=== PATIENT | male | born 1965 | race Native Hawaiian/Other Pacific Islander ===

== ENCOUNTER 2016-08-10 23:18 | Inpatient (IN) | payer BC, OTHER ==
[~2016-08-10] VITALS: Ht 167.6 cm; Wt 88.5 kg
--- NOTE | ~2016-08-10 | H ---
[facility] [place] [address] HISTORY AND PHYSICAL Name: GALILEO WOMACK Room #: 309-P ADM IN M.R.#: [id number] Admission: 08/11/16 Attend Phys: Alvarez Inman MD Discharge: Date of : 63 Report #: [id number] THIS REPORT FOR: //name// CC: Jessica Thompson MD [facility] Alvarez Inman MD DATE OF SERVICE: 08/11/2016 CHIEF COMPLAINT: Chest pain. HISTORY OF PRESENT ILLNESS: The patient is a 51-year-old [place] Islander male who was at home working out. Today when he developed a sudden substernal crushing discomfort that radiated to his left shoulder and down his left arm and into the jaw. It was associated with shortness of breath that worsened when he ambulated across the room. He was already sweating and was not able to attest to whether he had gotten any worse with this syndrome, but it made him feel very, very ill. He called out to his who got him to the [facility] Emergency Room within 30 minutes of the onset of his symptoms. He was given two sublingual nitroglycerins and the workup for potential coronary artery disease was initiated. His EKG in the Emergency Room showed normal sinus rhythm with what is apparently a new left anterior fascicular block and some repolarization changes. Initial cardiac enzymes were negative. Baseline creatinine on arrival today is 1.5. Chest x-ray is otherwise benign. PAST MEDICAL HISTORY: Includes recurrent gout. He was recently treated with Uloric for this, but did not have a good result and discontinued in favor of returning to colchicine daily with intermittent use of anti-inflammatories such as prednisone to control the flare ups. He does have known hyperuricemia. 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 He did have some elevated liver function tests at that time. He is overweight. PAST SURGICAL HISTORY: He has had tonsillectomy about 11 or 12 years ago. He has had a cholecystectomy about 4 years ago. ALLERGIES: PENICILLINS, SHELLFISH, LACTOSE AND SHRIMP. FAMILY HISTORY: Coronary artery disease and hypertension. SOCIAL HISTORY: The patient is to Yolanda Womack. He has two grown daughters. He is in the process of helping one of them moved back to [place] from [place]. He is a lifelong nonsmoker and does not abuse alcohol or recreational drugs and never has. REVIEW OF SYSTEMS: No headaches, no confusion, no trauma or falls. No change [facility] [address] [place] [address] HISTORY AND PHYSICAL Name: GALILEO WOMACK Room #: 309-P [facility] IN M.R.#: [id number] Admission: 08/11/16 Attend Phys: Alvarez Inman MD Discharge: Date of : 63 Report #: [id number] in vision or hearing or sense of taste or smell. No difficulties with swallowing. No chest pain prior to the sudden onset today. Shortness of breath walking across the room. Otherwise, none prior. He has noticed no decrease in his exercise tolerance recently. No swelling noted in his extremities. No abdominal pain. No change in his bowel or bladder habits recently. Until today, therefore he had no difficulties pursuing his physical workouts. PHYSICAL EXAMINATION: In the Emergency Room. VITAL SIGNS: Temperature of 97.9, pulse of 77, respirations of 24 per minute, blood pressure 157/100 and a room air oxygen saturation is 99%. His blood pressure later fell to 137/85 after receiving aspirin and sublingual nitroglycerin. The difference in blood pressures between his arms was negligible. GENERAL: The patient is a very pleasant, somewhat tired looking middle-aged [place] Islander male in no distress. At the time I examined him, his chest pain was nearly resolved. HEENT: The extraocular muscles are intact. Oropharynx is moist and pink. Hearing is grossly normal. NECK: Supple, without adenopathy or overt thyromegaly or jugular venous distention. LUNGS: Clear bilaterally. CARDIOVASCULAR: Reveals a regular rhythm with no ectopy. S1 and S2 are noted. ABDOMEN: Soft and benign on exam today. There is no epigastric tenderness and there is no organomegaly. EXTREMITIES: Without cyanosis or clubbing or edema. Peripheral pulses easily palpated in all 4 distal extremities. MENTAL STATUS AND NEUROLOGIC: Entirely within normal limits. LABORATORY DATA: CBC showed a white cell count that was elevated at 15,900 (he is taking prednisone for gout flare up), hemoglobin 15.2 with normal red blood cell indices, platelet count 283,000. Differential showed 59.4% segmented neutrophils, 30.9% lymphocytes, 8.7% monocytes, eosinophils 0.4%, basophils 0.6% and the absolute neutrophil count is 9400 per microliter. The protime was 9.9 with an INR of 1.0. The APTT was 27.0, and also normal. The comprehensive metabolic panel showed a sodium of , potassium slightly low at 3.2 (he admits to some slight diarrhea when he takes colchicine), chloride of 103, bicarbonate 27, BUN of 18, creatinine 1.5. The anion gap is 13, glucose is nonfasting. AST of 16, ALT of 106 (note prior history of elevated liver functions), alkaline phosphatase 105, total bilirubin 0.4. The calcium is 9.2. The albumin is 3.9, magnesium is 2.0 and normal. The estimated glomerular filtration rate is 49. Total CPK on arrival was 147. Troponin is less than 0.04 and the NT-proBNP is 58 and also is normal. The CK-MB mass in the ER was normal at 1.2. Chest x-ray done in the Emergency Room showed decreased inspiration, atelectasis in the bases. Nothing for acute heart failure, pneumonitis. The EKG on admission showed a normal sinus rhythm, rate of 83 beats per minute. There was left axis deviation and ST elevation, probable [facility] [address] [place] [address] HISTORY AND PHYSICAL Name: GALILEO WOMACK Room #: 309-P [facility] IN ..#: [id number] Admission: 08/11/16 Attend Phys: Alvarez Inman MD Discharge: Date of : 63 Report #: [id number] early to be normal early repolarization pattern and I interpreted as having a left anterior fascicular block, not confirmed on the official report, however. ASSESSMENT AND PLAN: 1. Chest pain, uncertain etiology. The left anterior fascicular block if present, is not a benign finding. The patient needs to be admitted for close observation. The decision pending his clinical progress will either before some sort of stress test tomorrow or heart catheterization. We will obtain consultation and I have spoken to Dr. Juan R Thompson regarding the patient's cardiac care and he agrees with this plan. I will defer to his judgment. The patient does have hyperuricemia by history. We will recheck this as well as lipids and other risk factors during his hospital stay. It is noteworthy he also has a neck circumference of 17.5 to 18 inches. So his risk factors for coronary artery disease are family history, elevated blood pressure today, hyperuricemia, overweight and possibly chronic kidney disease. His estimated GFR was 49. Treatment and workup will include aggressive lipid lowering (liver functions permitting), aggressive blood pressure control, evaluation for obstructive sleep apnea (he does snore when he sleeps on his back) and a heart healthy diet and cardiac rehabilitation program. 2. Hyperuricemia and recurrent gout. I will be discussing further, to continue treatment of this problem with the patient. The presence of hyperuricemia chronically is an independent risk factor for the development of coronary artery disease. However, I am not sure of the importance of lowering it with regards to decrease in coronary risk factors. It would certainly be helpful in reducing the recurrences of acute gout flare ups. 3. Increased neck circumference and snoring as described above. 4. Apparent chronic kidney disease. The patient is quite muscular and this may partly reflect his physique. We will continue to monitor. 5. Hypokalemia, see above. Replacement potassium has already been ordered by the emergency physician and will follow up to make sure that it normalizes prior to discharge. 6. Bello Inman M.D. <ELECTRONICALLY SIGNED> By: Alvarez Inman MD 08/11/16 1112 0942 1109 Alvarez Inman MD /nt
--- NOTE | ~2016-08-10 | CATHLAB ---
[facility] [place] [address] INVASIVE PROCEDURE REPORT Name: GALILEO WOMACK Room #: 207-P [facility] IN .R.#: [id number] Admission: 08/11/16 Attend Phys: Alvarez Inman MD Discharge: 08/13/16 Date of : 63 Date of Service: 08/11/16 1546 Report #: [id number] THIS REPORT FOR: //name// CC: Alvarez Inman PROCEDURE: This is PTCA stent of mid LAD. DESCRIPTION OF PROCEDURE: The patient was brought to the catheterization lab emergently for having some recurrent pain. He had an intervention previously with a proximal mid LAD stent placed. There was a moderately hazy 50%-60% narrowing in the more distal LAD down and we elected to treat that medically. However, he has had recurrent pain and some subtle anterolateral ST changes, although not elevation. Brought back to the catheterization lab in EBU guide. A 6-New Zealander sheath placed in the femoral artery without complication. Heparin and Integrilin boluses, Integrilin drip had already been initiated. It was still persistently hazy appearing and appeared tighter in some views, suspect this has to be the culprit. I dilated with a 2.5 x 12 balloon. I then placed a 2.5 x 12 Resolute drug-eluting stent. This actually overlapped into the more proximal 2.75 stent, deployed to 14 atmospheres and then postdilated to 19 atmospheres within the stent in the overlapping segment. The final result was excellent with 2 sequential stents in the mid LAD, yielding 0% residual and LUIS grade 3 flow. Small diagonal branch there which is less than 1.0 branch which may close. He is having no pain. The larger first diagonal branch has an eccentric 70% lesion at the ostium, which we will follow and not intervene on. He is pain free at this time. Vascular sheath was removed with a Mynx closure without complication, for an ACT at 198. Integrilin drip will be maintained. He will transfer to the CCU pain free and without EKG changes. HEMODYNAMICS: Aortic 120/82. IMPRESSION: 1. Successful percutaneous transluminal coronary angioplasty stent of the more distal mid left anterior descending lesion with progressive haziness and some flow limitation, with placement of a 2.5 x 12 Resolute drug-eluting stent. This slightly overlapped into the slightly more proximal 2.75 x 12 Resolute, which was placed earlier today for a non-ST elevation myocardial infarction. The remainder of the vessels was well preserved and wraps the apex. 2. Moderate first ostial lesion of 70%, will treat medically. See the prior report for the reminder of the left system dictation. He is stable and pain free. Vascular sheath has been removed with Mynx, without hematoma. We will transfer to the CCU. Nitro drip and Integrilin drips to be maintained overnight. <ELECTRONICALLY SIGNED> By: Juan R Thompson MD, FACC 08/19/16 1233 1546 [id number] Juan R Thompson MD, FACC /nt
--- NOTE | ~2016-08-10 | D ---
[facility] [place] [address] DISCHARGE SUMMARY Name: GALILEO WOMACK Room #: 207-P [facility] IN M.R.#: [id number] Admission: 08/11/16 Attend Phys: Alvarez Inman MD Discharge: 08/13/16 Date of : 63 Report #: [id number] THIS REPORT FOR: //name// CC: Jessica Thompson MD [facility] Alvarez Womack MD DATE OF SERVICE: 08/13/2016 DATE OF ADMISSION: 08/11/2016. DATE OF DISCHARGE: 08/13/2016. 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 He ruled in for non-ST segment elevation myocardial infarction. He was seen in consultation by Dr. Juan R Thompson who took him for heart catheterization the following morning and placed a stent in a 90% occlusion in his left anterior descending coronary artery. He has other areas of involvement of coronary artery disease as described in the cardiac catheterization report. His left ventricular ejection fraction is normal or very near normal. After his heart catheterization that same afternoon, he developed recurrent chest discomfort and was found to have EKG changes and returned to the cardiac catheterization lab where a second stent was placed sequentially in the left anterior descending artery in an area of a less critical distal lesion. The chest pain resolved with this intervention, and the patient had no further episodes of chest discomfort during this hospitalization. He did develop a small bruise/hematoma in the right groin at the site of catheterization, but otherwise had no complications. Other findings during this hospitalization include a creatinine that was 1.5 on admission and fell to 1.3 by the day of discharge. Chest x-ray that was essentially normal. EKG that showed a left anterior fascicular block, but was otherwise normal with the exception of some transient ischemic changes in the anterior leads. His uric acid levels were exceedingly high at 10.0. Blood pressure control was achieved with difficulty using lisinopril and addition of a p.r.n. dose of amlodipine at one point. A beta estefania was discussed and not recommended because of the patient's baseline slow heart rate. In general, his heart rate was in the 50s and not higher than the 80s during this hospital stay. [facility] [address] [place] [address] DISCHARGE SUMMARY Name: GALILEO WOMACK Room #: 207-P [facility] IN M.R.#: [id number] Admission: 08/11/16 Attend Phys: Alvarez Inman MD Discharge: 08/13/16 Date of : 63 Report #: [id number] The patient also has a history of mild liver enzyme elevations times many years. Apparently, his brothers also have this abnormality. 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 However, at that time, hepatitis C, had not yet been identified and was only given the name of non-A and non-B hepatitis. I have ordered a hepatitis panel to help reassess this. Other hepatic disease etiologies are considered worked up and found not to be present, including alpha 1 antitrypsin deficiency and Ole's disease. Certainly, the patient has no evidence of chronic liver disease otherwise, and his prothrombin time is normal during this hospitalization. Hemoglobin A1c was obtained and was 5.3 and normal. Lipid profile showed a total cholesterol of approximately 170 with an LDL that was between 100 and 110. The rest of the labs can be found in the body of the chart. The patient has a 17-1/2 inch neck size. His admits that his breathing is altered when he sleeps on his back, so he studiously makes the effort to sleep on his side. He does have a strong family history of coronary artery disease in his father and uncle. In discussing the case with Dr. Thompson, he expressed an interest in converting the lisinopril, which the patient is currently receiving at the hospital, to Edarbi. I will defer to his judgment on this matter at discharge. I discussed the possibility of the patient having a stress test in several months after his recovery to assess the stability of his other lesions and efficacy of the stent placements. The patient will be following up with Dr. Thompson routinely for this. I have, at the patient's request and with his permission, sent copies of these records not including this discharge summary, to Dr. Ernesto Brooks, chair of the Lipids Department at the [facility], and requested a formal outpatient consult in the future. The patient will be sent home on high dose statin therapy. I have not studied his carotid arteries at this time. The patient is also being sent home on fish oil and aspirin for preventive therapy. The hyperuricemia problem from which the patient suffers and has recurrent gout problems, also needs to be addressed. Prior to this hospitalization and because of underlying abnormal liver function tests, I treated the patient with Uloric for a time. The patient felt that his gout was considerably worsened while he was taking that medication, much to his surprise and mine. At this time, he will continue on colchicine and prednisone for acute flare-ups pending that workup. As hyperuricemia is a known risk factor with coronary artery disease, it is significantly worth addressing, but it is my understanding at this time that it is not clear whether the presence of hyperuricemia is an effect of [facility] [address] [place] [address] DISCHARGE SUMMARY Name: GALILEO WOMACK Room #: 207-P [facility] IN M.R.#: [id number] Admission: 08/11/16 Attend Phys: Alvarez Inman MD Discharge: 08/13/16 Date of : 63 Report #: [id number] vascular disease or causative factor in this development. I have suggested he might wish to see a kier drier for this and will be in contact with me as far as arranging that after he is released from Cardiology and lipid clinics. Because of the known sleep issues, I strongly recommended to the patient that he have a polysomnogram, and we will be arranging this as an outpatient as well. The other lab pending at time of discharge was testosterone and free testosterone levels. DISCHARGE MEDICATIONS: At time of discharge, the patient is on the following medication regimen: 1. Effient or prasugrel 10 mg by mouth daily for at least 1 year. 2. Atorvastatin 80 mg by mouth daily. 3. Fish oil 1000 mg by mouth twice daily. 4. Nitroglycerin sublingual 0.4 mg as needed for chest pain up to 3 times per episode with instructions to go to the ER should that fail. 5. Lisinopril 40 mg by mouth daily. * 6. Aspirin 325 mg by mouth daily. 7. Tylenol on a p.r.n. basis. 8. Colchicine 0.6 mg daily. 9. Prednisone 20 mg daily as directed for flare-ups of gout. (Dr. Thompson is planning to convert lisinopril to Edarbi when he sees him at followup). Please note that after the discharge orders were entered in the computer and signed, the patient developed some discomfort at the tip of his penis and was treated for balanitis with some topical nystatin cream). DISCHARGE DIAGNOSES: 1. Non-ST segment elevation myocardial infarction. 2. Coronary artery disease. 3. Hyperlipidemia. 4. Hypertension. 5. Hyperuricemia. 6. Hypokalemia. 7. Abnormal liver function tests. 8. Candidal balanitis. 9. Overweight. <ELECTRONICALLY SIGNED> By: Alvarez Inman MD 08/14/16 0019 0918 1438 Alvarez Inman MD /nt
--- NOTE | ~2016-08-10 | EKG ---
[address] [address] ELECTROCARDIOGRAM REPORT Name: GALILEO WOMACK Room #: 309-P ADM IN M.R.#: [id number] Admission: 08/11/16 Attend Phys: Alvarez Inman MD Discharge: Date of : 63 Report #: [id number] THIS REPORT FOR: //name// [facility] [place] [place] Test Date: 2016-08-11 Test Time: 09:31:12 Pat Name: GALILEO WOMACK Department: Room: 309 P Gender: M Correctional Medicine Physician: ISIDORO : 1965 Requested By: Juan R Thompson Order Number: [id number] MD: Italo Snell Measurements Intervals Foster Rate: 61 P: 29 PA: 135 QRS: -34 QRSD: 107 T: -9 QT: 442 QTc: 446 Interpretive Statements Sinus rhythm Left axis deviation Abnormal R-wave progression, early transition Borderline T abnormalities, inferior leads Electronically Signed On 08-11-2016 12:48:48 NANNY/HOUSEHOLD MANAGER by Italo Snell [email or web address] <ELECTRONICALLY SIGNED> By: Italo Snell MD 08/11/16 1248 0 0 Italo Snell MD /SUNSHINE
--- NOTE | ~2016-08-10 | HC ---
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 He does not have a cardiac history. He had an episode last night while working out of some significant substernal chest pain or pressure, made him mildly diaphoretic and short of breath. Subsequently, brought to the emergency room here at [facility] by his son. No acute current injury and became pain free. Initial troponin was negative. One episode of chest pain after he went to the bathroom during the night. He was admitted and placed on aspirin. The troponin this morning was 1.5. He has been pain free since the event during the night. He takes only colchicine and currently on a prednisone taper for a flare of gout. He denies PND or orthopnea. There has not really been significant change in his exercise tolerance, he states. This was the first event of this. No PND or orthopnea. No peripheral edema. No syncope or presyncope. EKG is sinus rhythm with some nonspecific changes. Laboratory work positive for troponin and hypokalemia. His H and H was 15 and 45 and platelets are 283,000. Potassium 3.2, being placed and creatinine 1.5. Lipids are pending. 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 He has had ear tubes placed and nonspecific liver function test. FAMILY HISTORY: Positive that father and uncle had premature coronary disease and also TIAs. ALLERGIES: PENICILLIN and SHELLFISH. He is also LACTOSE INTOLERANT. SOCIAL HISTORY: He is a physician, , 2 children. Minimal alcohol use. No tobacco or drug use. REVIEW OF SYSTEMS: Essentially negative, except for as stated above. PHYSICAL EXAMINATION: VITAL SIGNS: Blood pressure has been running in 160/90 range. Pulse is 50. HEENT: Eyes reveal no xanthelasmas. Pharynx is clear. NECK: Shows preserved upstrokes, without JVD or bruits. LUNGS: Clear. CARDIAC EXAMINATION: Regular rate and rhythm, S1, S2, without murmur or gallop. ABDOMEN: Soft. No HSM or abdominal bruit. EXTREMITIES: Reveal no edema. Distal pulses are intact. NEUROLOGIC: Nonfocal. [facility] [address] [place] [address] CONSULTATION Name: GALILEO WOMACK Room #: [address] [place] [address] IN M.R.#: [id number] Admission: 08/11/16 Attend Phys: Alvarez Inman MD Discharge: 08/13/16 Date of : 63 Report #: [id number] SKIN: Warm and dry, without xanthoma or ulcer. MUSCULOSKELETAL: No gross joint deformity. ASSESSMENT: 1. Non-ST elevation myocardial infarction. 2. Coronary artery disease. 3. Hypertension. 4. Elevated liver function tests. 5. Hypokalemia. RECOMMENDATIONS AND PLAN: He has been given 80 of Lipitor and aspirin. We will proceed to the catheterization lab to delineate the anatomy. Risks, benefits and alternatives were discussed with the patient, who does elect to proceed. Family is not currently present, but will discuss with them. <ELECTRONICALLY SIGNED> By: Juan R Thompson MD, FACC 08/19/16 1233 0837 1103 Juan R Thompson MD, FACC /nt
--- NOTE | ~2016-08-10 | EKG ---
[address] [address] ELECTROCARDIOGRAM REPORT Name: GALILEO WOMACK Room #: 207-P ADM IN M.R.#: [id number] Admission: 08/11/16 Attend Phys: Alvarez Inman MD Discharge: Date of : 63 Report #: [id number] THIS REPORT FOR: //name// [facility] Test Date: 2016-08-12 Test Time: 06:39:38 Pat Name: GALILEO WOMACK Department: Room: 207 P Gender: M Industrial Safety And Health Technician: beka : 1965 Requested By: Juan R Thompson Order Number: [id number] MD: Deon Marsh Measurements Intervals [place] Rate: 60 P: 24 [place]: 130 QRS: -38 QRSD: 116 T: 42 QT: 540 QTc: 540 Interpretive Statements Sinus rhythm Leftward axis Abnrm T, consider ischemia, anterolateral lds Baseline wander in lead(s) V5 Compared to ECG 08/11/2016 13:55:55 no significant change was found Electronically Signed On 08-12-2016 7:45:41 ELECTRIC MOTORMAN by Deon Marsh [email or web address] <ELECTRONICALLY SIGNED> By: Deon Marsh MD, [facility] 08/12/16 0745 0639 0639 Deon Marsh MD, [facility] /EPI
--- NOTE | ~2016-08-10 | EKG ---
[address] [address] ELECTROCARDIOGRAM REPORT Name: GALILEO WOMACK Room #: 309-P ADM IN M.R.#: [id number] Admission: 08/11/16 Attend Phys: Alvarez Inman MD Discharge: Date of : 63 Report #: [id number] THIS REPORT FOR: //name// [facility] Test Date: 2016-08-10 Test Time: 23:19:15 Pat Name: GALILEO WOMACK Department: Room: [facility] Gender: M Armature Straightener: SAKSHI : 1965 Requested By: Mir Lizarraga Order Number: [id number] MD: Italo Snell Measurements Intervals [place] Rate: 83 P: 55 [place]: 137 QRS: -41 QRSD: 106 T: 28 QT: 402 QTc: 473 Interpretive Statements Sinus rhythm Left axis deviation ST elev, probable normal early repol pattern No previous ECG available for comparison Electronically Signed On 08-11-2016 8:07:17 ELECTRO MECHANICAL TECHNICIAN by Italo Snell [email or web address] <ELECTRONICALLY SIGNED> By: Italo Snell MD 08/11/16 0807 18 18 Italo Snell MD /[facility]
--- NOTE | ~2016-08-10 | CATHLAB ---
[facility] [address] [place] [address] INVASIVE PROCEDURE REPORT Name: GALILEO WOMACK Room #: 207-P [facility] IN M.R.#: [id number] Admission: 08/11/16 Attend Phys: Alavrez Inman MD Discharge: 08/13/16 Date of : 63 Date of Service: 08/11/16 0841 Report #: [id number] THIS REPORT FOR: //name// CC: Alvarez Inman MD PROCEDURES: Left ventriculography, coronary angiography, stent of LAD, abdominal aortography. DESCRIPTION OF PROCEDURE: The patient brought to the catheterization lab having recurrent 2 episodes of chest pain with a troponin of 1.5, pain free, had been admitted overnight. The right groin prepped and draped in sterile manner. Xylocaine was used for local anesthesia. Versed was given for conscious sedation, a 6 Irish sheath, right femoral artery over the wire. Initially, a straight pigtail catheter performed a single CROSS arteriogram and AP aortogram. LV function was preserved. Perhaps some very subtle anterior apical wall lag, ejection fraction was 55%. Abdominal aorta was intact. FL4 for left coronary system, FR4 for the right coronary system, multiple views and obliques were taken. Left main had mild irregularities and the LAD was mildly diseased and then the mid vessel had a 90% eccentric lesion followed by hazy area followed by 50% blockage in the bifurcation. This was a rapid around the LAD. The circumflex was nondominant with a 30-40% more distal lesion before an OM branch. The dominant right was a large, dominant vessel with 20% and 30% irregularities which did feel a large PDA along the inferior wall. I utilized a 4-0 EBU guide, an 0.014 loose wire, heparin, Integrilin boluses were given and p.o. Effient. I primarily stented this lesions the stent with a 2.75 x 12 Resolute drug-eluting stent, postdilated that up to 14, 15 atmospheres, which is approximately 3.0 mm in size, yielding 0% residual and LUIS grade 3 flow. The patient had resolution of his EKG changes. He had no pain during that procedure. Vascular sheath is secured for an ACT of 219. This will be removed in the CV holding area prior to monitor overnight in the CCU. Hemodynamically stable. HEMODYNAMICS: Aortic was 158/90, LV 156/18. IMPRESSION: 1. Successful primary of the mid LAD 90% eccentric cleft lesion with a 2.75 x 12 Resolute stent postdilated to 3.0 mm. There is a 50% more distal LAD lesion which we will continue to follow. 2. Mild left main disease. 3. Circumflex has 30-40% distal lesion proximal to the bifurcation, was nondominant. 4. Large dominant right coronary artery with mild irregularities. 5. Normal left ventricular size and systolic function, subtle anterior apical wall lag, I expect this to normalized EF 50-55%. 6. Abdominal aorta is intact without evidence of aneurysm. Single renal arteries were widely patent. [facility] [address] [place] [address] INVASIVE PROCEDURE REPORT Name: GALILEO WOMACK Room #: 207-P [facility] IN ..#: [id number] Admission: 08/11/16 Attend Phys: Alvarez Inman MD Discharge: 08/13/16 Date of : 63 Date of Service: 08/11/16 0841 Report #: [id number] RECOMMENDATIONS AND PLAN: We will continue aggressive risk factor modification, dual antiplatelet therapy. We will continue indefinitely for reevaluation , statin, YAS inhibitors. We will follow with Dr. Inman. Thank you for asking us to assist in the care of this patient.. <ELECTRONICALLY SIGNED> By: Juan R Thompson MD, FACC 08/19/16 1233 0841 1000 Juan R Thompson MD, FACC /nt
--- NOTE | ~2016-08-10 | EKG ---
[address] [place] [address] ELECTROCARDIOGRAM REPORT Name: GALILEO WOMACK Room #: 309-P ADM IN M.R.#: [id number] Admission: 08/11/16 Attend Phys: Alvarez Inman MD Discharge: Date of : 63 Report #: [id number] THIS REPORT FOR: //name// [facility] Test Date: 2016-08-11 Test Time: 13:55:55 Pat Name: GALILEO WOMACK Department: Room: 309 P Gender: M Museum Preparator: Hedy HENRIQUEZ : 1965 Requested By: Juan R Thompson Order Number: [id number] MD: Italo Snell Measurements Intervals [place] Rate: 78 P: 37 [place]: 132 QRS: -57 QRSD: 116 T: -14 QT: 482 QTc: 550 Interpretive Statements Sinus rhythm Left anterior fascicular block Abnrm T, consider ischemia, anterolateral lds Baseline wander in lead(s) V6 Compared to ECG 08/11/2016 09:31:12 Electronically Signed On 08-11-2016 15:54:22 PRODUCTION WELDER by Italo Snell [email or web address] <ELECTRONICALLY SIGNED> By: Italo Snell MD 08/11/16 1554 1355 1355 Italo Snell MD /EPI
--- NOTE | ~2016-08-10 | EKG ---
[address] [address] ELECTROCARDIOGRAM REPORT Name: GALILEO WOMACK Room #: 309-P ADM IN M.R.#: [id number] Admission: 08/11/16 Attend Phys: Alvarez Inman MD Discharge: Date of : 63 Report #: [id number] THIS REPORT FOR: //name// [facility] Test Date: 2016-08-11 Test Time: 02:26:15 Pat Name: GALILEO WOMACK Department: Room: 309 P Gender: M Assistant Chief Train Dispatcher: . : 1965 Requested By: Alvarez Inman Order Number: [id number] MD: Italo Snell Measurements Intervals [place] Rate: 56 P: 1 [place]: 129 QRS: -39 QRSD: 111 T: 8 QT: 446 QTc: 431 Interpretive Statements Sinus rhythm Left axis deviation RSR' in V1 or V2, probably normal variant No previous ECG available for comparison Electronically Signed On 08-11-2016 8:07:56 PROJECT MANAGEMENT IT SPECIALIST by Italo Snell [email or web address] <ELECTRONICALLY SIGNED> By: Italo Snell MD 08/11/16 0807 5 5 Italo Snell MD /[facility]
--- NOTE | ~2016-08-10 | EKG ---
[address] [place] [address] ELECTROCARDIOGRAM REPORT Name: GALILEO WOMACK Room #: 207-P ADM IN M.R.#: [id number] Admission: 08/11/16 Attend Phys: Alvarez Inman MD Discharge: Date of : 63 Report #: [id number] THIS REPORT FOR: //name// [facility] Test Date: 2016-08-11 Test Time: 18:00:58 Pat Name: GALILEO WOMACK Department: Room: 207 P Gender: M Bee Raiser: Jimbo PURVIS : 1965 Requested By: Juan R Thompson Order Number: [id number] MD: Deno Marsh Measurements Intervals [place] Rate: 63 P: 26 [place]: 131 QRS: -44 QRSD: 106 T: -25 QT: 435 QTc: 446 Interpretive Statements Sinus rhythm Left axis deviation RSR' in V1 or V2, probably normal variant Abnrm T, consider ischemia, anterolateral lds Compared to ECG 08/11/2016 13:55:55 No significant changes Electronically Signed On 08-12-2016 7:40:06 AVIATION SAFETY TECHNICIAN by Deon Marsh [email or web address] <ELECTRONICALLY SIGNED> By: Deon Marsh MD, FAC 08/12/16 0740 1800 1800 Deon Marsh MD, [facility] /EPI
--- NOTE | ~2016-08-10 | EKG ---
[place] [address] [facility] [place] [address] ELECTROCARDIOGRAM REPORT Name: GALILEO WOMACK Room #: 309-P ADM IN M.R.#: [id number] Admission: 08/11/16 Attend Phys: Alvarez Inman MD Discharge: Date of : 63 Report #: [id number] THIS REPORT FOR: //name// [facility] Test Date: 2016-08-11 Test Time: 07:06:14 Pat Name: GALILEO WOMACK Department: Room: 309 P Gender: M Alcohol Law Enforcement Agent: beka : 1965 Requested By: Alvarez Inman Order Number: [id number] MD: Deon Marsh Measurements Intervals [place] Rate: 70 P: 28 [place]: 136 QRS: -35 QRSD: 112 T: 27 QT: 414 QTc: 447 Interpretive Statements Sinus rhythm Borderline IVCD with LAD RSR' in V1 or V2, right VCD or RVH Baseline wander in lead(s) V5 No previous ECG available for comparison Electronically Signed On 08-11-2016 8:09:08 SEAM STAYER by Deon Marsh [email or web address] <ELECTRONICALLY SIGNED> By: Deon Marsh MD, [facility] 08/11/16 0809 0706 0706 Deon Marsh MD, [facility] /EPI
--- NOTE | ~2016-08-10 | EKG ---
[place] [address] [facility] [place] [address] ELECTROCARDIOGRAM REPORT Name: GALILEO WOMACK Room #: 207-P ADM IN M.R.#: [id number] Admission: 08/11/16 Attend Phys: Alvarez Inman MD Discharge: Date of : 63 Report #: [id number] THIS REPORT FOR: //name// [facility] Test Date: 2016-08-11 Test Time: 14:29:10 Pat Name: GALILEO WOMACK Department: Room: 207 P Gender: M Marriage Counselor Minister: Jimbo PURVIS : 1965 Requested By: Juan R Thompson Order Number: [id number] MD: Deon Marsh Measurements Intervals [place] Rate: 65 P: 29 [place]: 118 QRS: -46 QRSD: 103 T: -58 QT: 452 QTc: 470 Interpretive Statements Sinus rhythm LAD Abnrm T, consider ischemia, anterolateral lds Compared to ECG 08/11/2016 13:55:55 No significant changes Electronically Signed On 08-12-2016 7:37:15 LIFE ENRICHMENT SPECIALIST by Deon Marsh [email or web address] <ELECTRONICALLY SIGNED> By: Deon Marsh MD, [facility] 08/12/16 0737 1429 1429 Deon Marsh MD, [facility] /EPI
[~2016-08-10 23:18] MED LIST: COLCHICINE 0.60.6 M1 PO; FLEXERIL PO; HYDROCODON-ACE1 EAC7 PO; INDOMETHACIN 2525 MG PO; NAPROSYN500 MG PO; NORCO 5-325 TA1 EACH PO; VITAMINC500 PO
[2016-08-10 23:19] VITALS: BP 157/100
[2016-08-10 23:52] LABS: ABSOLUTE NEUTROPHILS 9.4 thou/uL (1.4-8.2); BASOPHILS 0.6 % (0.0-2.0); EOSINOPHILS 0.4 % (0.0-3.0); HEMATOCRIT 45.2 % (42.0-52.0); HEMOGLOBIN 15.2 gm/dL (14.0-18.0); LYMPHOCYTES 30.9 % (24.0-44.0); MCH 28.8 pg (26.0-34.0); MCHC 33.5 % (28.0-37.0); MONOCYTES 8.7 % (1.0-8.0); PLATELET COUNT 283 thou/uL (150-400); POLYS 59.4 % (36.0-66.0); RBC 5.25 mil/uL (4.50-6.00); RDW 13.3 % (10.5-14.5); WBC 15.9 thou/uL (4.0-11.0)
[2016-08-10 23:53] LABS: MANUAL DIFF NO
[2016-08-10 23:59] LABS: PROTIME 9.9 Seconds (9.3-11.4)
[2016-08-11] VITALS (14 sets, daily range): BP systolic 128–146; BP diastolic 82–98
[2016-08-11 00:02] LABS: ANION GAP 13 mmol/L (7-16); BUN 18 mg/dL (7-18); CALCIUM 9.2 mg/dL (8.5-10.1); CHLORIDE 103 mmol/L (98-107); CO2 27 mmol/L (21-32); CREATININE 1.5 mg/dL (0.6-1.3); GLUCOSE 88 mg/dL (70-99); POTASSIUM 3.2 mmol/L (3.5-5.1); SODIUM 143 mmol/L (136-145)
[2016-08-11 00:11] LABS: ALBUMIN 3.9 g/dL (3.4-5.0); ALKALINE PHOSPHATASE 105 U/L (46-116); NT-PRO BRAIN NAT PEPTIDE 58 pg/mL (<300); SGOT 16 U/L (15-37); SGPT 106 U/L (30-65); TOTAL BILIRUBIN 0.4 mg/dL (<0.1-1.0); TOTAL PROTEIN 7.6 g/dL (6.4-8.2); TROPONIN-I < 0.04 ng/mL (<0.04-0.07)
[2016-08-11] MEDS ORDERED: PREDNISONE 20 M20 MG PO (00:41)
[2016-08-11] MEDS ORDERED: COLCHICINE0.6 MG PO (00:41)
[2016-08-11 08:33] LABS: CHOLESTEROL 157 mg/dL (<200); HDL CHOLESTEROL 42 mg/dL (>40); LDL CHOLESTEROL 102 mg/dL (<100); TC:HDL 3.7 Ratio (Not establshd); TRIGLYCERIDE 68 mg/dL (<150); VLDL 14 mg/dL (<40)
[2016-08-12] VITALS (7 sets, daily range): BP systolic 131–151; BP diastolic 89–98
[2016-08-12 04:07] LABS: HEMATOCRIT 42.2 % (42.0-52.0); HEMOGLOBIN 14.2 gm/dL (14.0-18.0); MCH 29.1 pg (26.0-34.0); MCHC 33.7 % (28.0-37.0); MCV 86.3 fL (80.0-100.0); RBC 4.89 mil/uL (4.50-6.00); RDW 13.5 % (10.5-14.5); WBC 16.9 thou/uL (4.0-11.0)
[2016-08-12 04:26] LABS: CALCIUM 8.3 mg/dL (8.5-10.1); CREATININE 1.2 mg/dL (0.6-1.3); POTASSIUM 3.4 mmol/L (3.5-5.1)
[2016-08-12 04:27] LABS: CHOLESTEROL 170 mg/dL (<200); HDL CHOLESTEROL 47 mg/dL (>40); LDL CHOLESTEROL 109 mg/dL (<100); TC:HDL 3.6 Ratio (Not establshd); TRIGLYCERIDE 72 mg/dL (<150); VLDL 14 mg/dL (<40)
[2016-08-12 04:29] LABS: TROPONIN-I 0.61 ng/mL (<0.04-0.07)
[2016-08-12 04:30] LABS: SERUM ASSESSMENT Clear
[2016-08-12 11:13] LABS: TSH 0.539 uIU/mL (0.450-4.500)
[2016-08-12 15:06] LABS: CREATININE (ALB/CR) 158.9 mg/dL (Not Estab.); MICROALB:CREAT < 6.0 (0.0-30.0); MICROALBUMIN-RND URINE < 9.5 ug/mL (Not Estab.)
[2016-08-12] MEDS ORDERED: EFFIENT10 MG PO (19:44)
[2016-08-12] MEDS ORDERED: LIPITOR80 MG PO (19:45)
[2016-08-12] MEDS ORDERED: FISH OIL 1,0001 EAC5 PO (19:46)
[2016-08-12] MEDS ORDERED: NITROGLYCERIN0.4 MG SUBLING (19:48)
[2016-08-12] MEDS ORDERED: LISINOPRIL40 MG PO (19:49)
[2016-08-12] MEDS ORDERED: ASPIRIN325 PO (19:49)
[2016-08-12] MEDS ORDERED: ACETAMINOPHEN325 M1 PO (19:55)
[2016-08-12 21:07] LABS: GLYCOHEMOGLOBIN (HGB A1C) 5.3 % (4.8-5.6)
[2016-08-13 03:26] VITALS: BP 132/88
[2016-08-13 04:04] LABS: CALCIUM 8.4 mg/dL (8.5-10.1); CREATININE 1.3 mg/dL (0.6-1.3); POTASSIUM 3.8 mmol/L (3.5-5.1)
[2016-08-13 08:10] VITALS: BP 132/90
[2016-08-13 09:55] VITALS: BP 132/90
[2016-08-13 14:09] LABS: FERRITIN 361 ng/mL (30-400); TESTOSTERONE* 472 ng/dL (348-1197)
[2016-08-14 06:07] LABS: HEPATITIS C VIRUS AB <0.1 (0.0-0.9)
[2016-08-16 14:12] LABS: FREE TESTOSTERONE 8.6 pg/mL (7.2-24.0)
== END 2016-08-13 11:28 | disposition home or self-care (01) | DRG 247 ==
LOC: ER 23:18 → EROBS 08-11 00:46 → 2N 08-11 00:46 → 3N 08-11 00:46 → 2N 08-11 16:23
PROVIDERS: Emergency Medicine; Internal Medicine; Internal Medicine Cardiovascular Disease
PROC: 027034Z Dilation of Coronary Artery, One Artery with Drug-eluting Intraluminal Device, Percutaneous Approach (ICD-10-PCS; principal; 2016-08-11)
DX: I21.4 Non-ST elevation (NSTEMI) myocardial infarction (principal); E79.0 Hyperuricemia without signs of inflammatory arthritis and tophaceous disease; E87.6 Hypokalemia; Z82.49 Family history of ischemic heart disease and other diseases of the circulatory system; Z88.2 Allergy status to sulfonamides; Z88.0 Allergy status to penicillin; I25.10 Atherosclerotic heart disease of native coronary artery without angina pectoris; I11.9 Hypertensive heart disease without heart failure; G47.33 Obstructive sleep apnea (adult) (pediatric)
CPT/HCPCS: 10081